=== PATIENT | female | born 2000 | race Two or more races ===

== ENCOUNTER 2024-08-06 16:38 | Emergency (ER) | payer OTHER ==
[~2024-08-06] VITALS: Ht 172.7 cm; Wt 127.0 kg
[2024-08-06 16:56] VITALS: BP 138/68; TEMP 98.1
[2024-08-06] MEDS ORDERED: ACET-2030 PO (18:35)
[2024-08-06] MEDS ORDERED: IBUP-1955 PO (18:35)
[2024-08-06 18:54] VITALS: O2SAT 98
== END 2024-08-06 18:54 | disposition home or self-care (01) ==
LOC: ER 17:11
DX: M79.672 Pain in left foot (principal)
CPT/HCPCS: 73630-TC